=== PATIENT | female | born 2000 | race African-American/Black ===

== ENCOUNTER 2023-02-01 03:16 | Emergency (ER) | payer MEDICAID ==
[~2023-02-01] VITALS: Ht 175.3 cm; Wt 57.3 kg
[2023-02-01 03:19] VITALS: PULSE 100
[2023-02-01 03:25] VITALS: BP 105/65; RESP 18; TEMP 98.2; O2SAT 100
== END 2023-02-01 05:15 | disposition left against medical advice (07) ==
LOC: ER 03:16
DX: Z53.21 Procedure and treatment not carried out due to patient leaving prior to being seen by health care provider (principal)
CPT/HCPCS: 99281

== ENCOUNTER 2023-03-16 19:08 | Emergency (ER) | payer MEDICAID, OTHER ==
[~2023-03-16] VITALS: Ht 165.1 cm; Wt 50.0 kg
[2023-03-16 19:13] VITALS: BP 121/63; PULSE 96; RESP 16; TEMP 98.1; O2SAT 100
== END 2023-03-16 20:32 | disposition left against medical advice (07) ==
LOC: ER 19:08
DX: Z53.21 Procedure and treatment not carried out due to patient leaving prior to being seen by health care provider (principal)
CPT/HCPCS: 99281